=== PATIENT | female | born 1960 | race Caucasian/White ===

== ENCOUNTER 2019-10-21 12:37 | Emergency (ER) | payer OTHER ==
[2019-10-21] MEDS ORDERED: Bacitracin 1 PK ONE (13:20)
[2019-10-21] MEDS ORDERED: HYDROcodone/Acetaminophen 5/325 mg Tablet ONE (13:21)
== END 2019-10-21 13:40 | disposition home or self-care (01) ==
LOC: ERS 12:37
DX: T24.211A Burn of second degree of right thigh, initial encounter (principal); T24.012A Burn of unspecified degree of left thigh, initial encounter; T31.0 Burns involving less than 10% of body surface; E03.9 Hypothyroidism, unspecified; Z79.899 Other long term (current) drug therapy; X11.0XXA Contact with hot water in bath or tub, initial encounter; Y93.G3 Activity, cooking and baking; Y92.009 Unspecified place in unspecified non-institutional (private) residence as the place of occurrence of the external cause
CPT/HCPCS: 99283